=== PATIENT | female | born 1995 | race Caucasian/White ===

== ENCOUNTER → 2017-06-27 01:25 | Emergency (ER) | payer BC ==
[2017-06-27 01:48] VITALS: BP 115/77
--- NOTE | 2017-06-27 02:16 | ED ---
Throat Pain/Nasal Congestion - HPI Summary HPI Summary: 21F presents with right eye pain that resolved. She states she got some dust in her eye when she was trying to move a ceiling panel. She states the area teared and she had pain and rubbed it and then her pain resolved. The school sent her in for further evaluation. she denies any drainage, pain, blurry vision or change in vision. She wears glasses but does not wear contacts. She denies any foreign body sensation. - History of Current Complaint Chief Complaint: EDEyeProblem Time Seen by Provider: 06/27/17 01:45 - Allergies/Home Medications Allergies/Adverse Reactions: Allergies Allergy/AdvReac Type Severity Reaction Status Date / Time Amoxicillin Allergy Hives Verified 02/15/16 10:21 PMH/Surg Hx/FS Hx/Imm Hx Endocrine/Hematology History: Denies: Hx Diabetes Cardiovascular History: Denies: Hx Congestive Heart Failure, Hx Hypertension, Hx Pacemaker/ICD, Other Cardiovascular Problems/Disorders Respiratory History: Reports: Hx Asthma - WITH EXERCISE SINCE 2011, Other Respiratory Problems/Disorders - [place]CHITIS [place]UMONIA [place] [id number]; PRESCRIBED RESCUE INHALER Denies: Hx Chronic Obstructive Pulmonary Disease (COPD) History: Denies: Hx Dialysis, Hx Renal Disease Musculoskeletal History: Denies: Hx Rheumatoid Arthritis, Hx Osteoporosis Sensory History: Denies: Hx Hearing Aid Psychiatric History: Denies: Hx Panic Disorder - Surgical History Surgery Procedure, Year, and Place: ARTHROSCOPIC MENISCUS REPAIR-LEFT KNEE Infectious Disease History: Denies: Traveled Outside the [place] in Last 30 Days - Family History Known Family History: Negative: Cardiac Disease, Hypertension, Diabetes - Social History Alcohol Use: None Substance Use Type: Reports: None Hx Tobacco Use: No Smoking Status (MU): Never Smoked Tobacco Have You Smoked in the Last Year: No Review of Systems Negative: Fever Positive: Other - pain in eye resolved Negative: Chest Pain Negative: Shortness Of Breath All Other Systems Reviewed And Are Negative: Yes Physical Exam Triage Information Reviewed: Yes Vital Signs On Initial Exam: Initial Vitals Temp Pulse Resp BP Pulse Ox 98.4 F 84 16 111/68 100 06/27/17 01:26 06/27/17 01:26 06/27/17 01:26 06/27/17 01:26 06/27/17 01:26 Vital Signs Reviewed: Yes Appearance: Positive: Well-Appearing Skin: Positive: Warm, Dry Head/Face: Positive: Normal Head/Face Inspection Eyes: Positive: Normal, EOMI, VÍCTOR, Conjunctiva Clear ENT: Positive: Normal ENT inspection, Pharynx normal, TMs normal Respiratory/Lung Sounds: Positive: Clear to Auscultation, Breath Sounds Present Cardiovascular: Positive: Normal, RRR Psychiatric: Positive: Normal Procedures - Eye Procedure Alcaine Drops Administered: Yes - no uptake on fluorscein exam Diagnostics - Vital Signs Vital Signs Temp Pulse Resp BP Pulse Ox 06/27/17 01:46 98.6 F 87 16 115/77 98 06/27/17 01:26 98.4 F 84 16 111/68 100 - Laboratory Lab Statement: Any lab studies that have been ordered have been reviewed, and results considered in the medical decision making process. EENT Course/Dx - Course Course Of Treatment: 21F presents with right eye pain that resolved. She states she got some dust in her eye when she was trying to move a ceiling panel. She states the area teared and she had pain and rubbed it and then her pain resolved. The school sent her in for further evaluation. she denies any drainage, pain, blurry vision or change in vision. She wears glasses but does not wear contacts. She denies any foreign body sensation. on exam no foreign body. fluorscein exam no uptake. discussed will not place on antibiotics at this point. patient understands and agrees with plan. - Differential Diagnoses Differential Diagnoses: Conjunctivitis, Corneal Abrasion, Foreign Body - Diagnoses Provider Diagnoses: Foreign body of right eye Discharge - Discharge Plan Condition: Good Disposition: HOME Referrals: No Primary Care Phys,NOPCP [Primary Care Provider] - Additional Instructions: no foreign body or abrasion seen on eye exam Use saline rinse if develop any symptoms Follow up with health center if develop any abnormal drainage Return to ED if develop any new or worsening symptoms
== END | disposition home or self-care (01) ==
LOC: ED 01:25
DX: T15.91XA Foreign body on external eye, part unspecified, right eye, initial encounter (principal); X58.XXXA Exposure to other specified factors, initial encounter; Y93.89 Activity, other specified; Y92.9 Unspecified place or not applicable; Y99.9 Unspecified external cause status
CPT/HCPCS: 99281

== ENCOUNTER → 2018-08-25 17:36 | Emergency (ER) | payer BC ==
[~2018-08-25 17:36] MED LIST: Butalb/Acetamin/Caff TAB* 1 TAB PO ONE; Metoclopramide IV* 5 MG/ML 2 ML VIAL IV ONE; NS 0.9% 1000 ML* 1,000 ML IV ONE; diPHENhydraMINE IV* 50 MG/ML 1 ml VIAL (BENADRYL) IV ONE; diPHENhydraMINE PO* 50 MG PO ONE; methylPREDNISolone 125 MG* 2 ML VIAL IV ONE
--- OUTSIDE RECORDS SUMMARY | 2018-08-25 18:26 | XMS REPORT ---
:1995 External Reference #:[id number] Author Organization [facility] Address [address] [address] Phone [phone] Care Team Providers Name Role Phone Azalea Shrestha MD Care Team Information Process Development Engineer Unavailable Payers Type Date Identification Numbers Payment Provider Subscriber Commercial Policy Number: [id number] [facility] Dixie Cormier PayID: [id number] [place] [id number] Medigap Part B Effective: 2018 Policy Number: BCBS Ppo Dixie Cormier [id number] PayID: [id number] [facility] [address] [place] [address] Problems Date Description Provider Status Onset: 08/01/2015 Exercise-induced asthma Cindi Piña MD Active Social History Type Date Description Comments ETOH Use Denies alcohol use Smoking Patient has never smoked Recreational Drug Use Denies Drug Use Allergies, Adverse Reactions, Alerts Date Description Reaction Status Severity Comments 08/01/2015 Amoxicillin active hive 08/01/2015 NKDA inactive Medications Medication Date Status Form Strength Qnty SIG Indications Ordering Provider Butalbital/Acet 08/04/ Active Capsules 50-300-40m 30caps 1 by mouth G43.011 [place], aminophen/Caffe 2018 g up to twice Azalea ine a day as MD Linda needed [place] Amitriptyline 08/04/ Active Tablets 25mg 30tabs take 1 G43.011 [place], HCL 2018 tablet by Azalea mouth at MD Linda bedtime Ventolin HFA 08/01/ Active Aerosol 108(90Base 1units 2 Wang 2014 ) mcg/Act inhalation Cindi spaced 1 MD Erlinda min apart 20 min prior to exersize - - pls deliver to tiff's fatmata Bactrim DS 02/12/ Hx Tablets 800-160mg 14tabs 1 tab by L03.116 [place], 2017 - mouth twice Azalea day x 7 MD Linda 2017 Vital Signs Date Vital Result Comment 08/04/2018 Weight 129.00 lb Heart Rate 89 /min BP Systolic 117 mmHg BP Diastolic 74 mmHg Height 64 inches 5'4" BMI (Body Mass Index) 22.1 kg/m2 02/14/2017 Weight 129.38 lb Heart Rate 93 /min BP Systolic 115 mmHg BP Diastolic 68 mmHg Height 64 inches 5'4" BMI (Body Mass Index) 22.2 kg/m2 02/12/2017 Body Temperature 98.6 F Weight 126.38 lb Heart Rate 86 /min BP Systolic 106 mmHg BP Diastolic 80 mmHg 08/01/2015 Weight 123.19 lb Weight Percentile 44th Heart Rate 108 /min BP Systolic 133 mmHg BP Diastolic 75 mmHg Results Description No Information Procedures Description No Information Encounters Type Date Location Provider CPT E/M Dx Office Visit 02/14/2017 9:20a Tanya Arreguin [place] [id number] L03.116 Office Visit 02/12/2017 11:00a Tanya Arreguin [place] [id number] L03.116 Office Visit 08/01/2015 1:20p Cindi Walker [place] [id number] B85.0 Plan of Care Future Appointment(s):08/25/2018 10:40 am - Can Hernandez PA at [id number] 10:00 am - [place] [facility] at [id number]/04/2018 - Can Hernandez, PAG43.011 Migraine without aura, intractable, with status migrainosusNew Medication:Butalbital/Acetaminophen/Caffeine 50-300-40 mgAmitriptyline HCL 25 mgComments:??rebound [place]. Stop motrin and tylenol. Will try elivil qhs and fioricet up to bid prn to break thecycle. ??MRI. ??refer to neuro.Follow up:f/ u in 2-3weeks
--- NOTE | 2018-08-25 19:20 | ED ---
Headache - HPI Summary HPI Summary: A 23 y/o female presents to the ED c/o [place] since 8 weeks ago, however today she claims that she felt like she almost lost consciousness. She describes the pain as constant. She also c/o dizziness, forgetfulness, numbness in her fingers and she feels like her legs are giving out. She denies weakness and fever. She has been given Tramadol but claims that it is not helping. She denies alcohol or drug use. - History Of Current Complaint Chief Complaint: EDHeadache Stated Complaint: HEADACHE Time Seen by Provider: 08/25/18 19:01 Hx Obtained From: Patient Hx Last Menstrual Period: 08/14/16 Onset/Duration: Gradual Onset, Started weeks ago, Still Present Initially Headache Was: Moderate Currently Pain Is: Moderate Timing: Constant Associated Signs And Symptoms: Dizziness, Visual Changes - Allergies/Home Medications Allergies/Adverse Reactions: Allergies Allergy/AdvReac Type Severity Reaction Status Date / Time amoxicillin Allergy Hives Verified 08/25/18 18:09 PMH/Surg Hx/FS Hx/Imm Hx Endocrine/Hematology History: Denies: Hx Diabetes Cardiovascular History: Denies: Hx Congestive Heart Failure, Hx Hypertension, Hx Pacemaker/ICD, Other Cardiovascular Problems/Disorders Respiratory History: Reports: Hx Asthma - WITH EXERCISE SINCE 2011, Other Respiratory Problems/Disorders - [place]IA [place] [id number]; PRESCRIBED RESCUE INHALER Denies: Hx Chronic Obstructive Pulmonary Disease (COPD) History: Denies: Hx Dialysis, Hx Renal Disease Musculoskeletal History: Denies: Hx Rheumatoid Arthritis, Hx Osteoporosis Sensory History: Denies: Hx Hearing Aid Psychiatric History: Denies: Hx Panic Disorder - Surgical History Surgery Procedure, Year, and Place: ARTHROSCOPIC MENISCUS REPAIR-LEFT KNEE - Immunization History Immunizations Up to Date: Yes Infectious Disease History: No Infectious Disease History: Denies: Traveled Outside the [place] in Last 30 Days - Family History Known Family History: Negative: Cardiac Disease, Hypertension, Diabetes - Social History Alcohol Use: None Substance Use Type: Reports: None Hx Tobacco Use: No Smoking Status (MU): Never Smoked Tobacco Have You Smoked in the Last Year: No Review of Systems Negative: Fever Positive: Blurred Vision Neurological: Other - Positive: forgetful, dizzy Positive: Headache, Numbness. Negative: Weakness All Other Systems Reviewed And Are Negative: Yes Physical Exam - Summary Physical Exam Summary: Appearance: Well appearing, no pain distress Skin: warm, dry, reflects adequate perfusion Head/face: normal Eyes: EOMI, VÍCTOR ENT: normal Neck: supple, non-tender Respiratory: CTA, breath sounds present Cardiovascular: RRR, pulses symmetrical Abdomen: non-tender, soft Bowel: present Musculoskeletal: normal, strength/ROM intact Neuro: normal, sensory motor intact, A&Ox3 GCS: 15 Triage Information Reviewed: Yes Vital Signs On Initial Exam: Initial Vitals Temp Pulse Resp BP Pulse Ox 98.9 F 82 20 131/77 96 08/25/18 17:51 08/25/18 17:51 08/25/18 17:51 08/25/18 17:51 08/25/18 17:51 Vital Signs Reviewed: Yes Diagnostics - Vital Signs Vital Signs Temp Pulse Resp BP Pulse Ox 08/25/18 18:33 71 119/78 98 08/25/18 18:32 90 100 08/25/18 17:51 98.9 F 82 20 131/77 96 - Laboratory Lab Statement: Any lab studies that have been ordered have been reviewed, and results considered in the medical decision making process. - CT Brain CT Interpretation Completed By: Radiologist - No acute intracranial pathology. The ED physician has reviewed this report. Re-Evaluation - Re-Evaluation First Eval Re-Evaluation Time: 19:28 Change: Unchanged Comment: Spoke with patient about what the neuroligist recommends Second Eval Re-Evaluation Time: 21:20 Change: Improved Comment: Patient states that she is feeling better and is ready for discharge Headache Course/Dx - Course Course Of Treatment: A 23 y/o female presents to the ED c/o [place] since 8 weeks ago , however today she claims that she felt like almost lost consciousness. Her PE was normal. Her brain CT came back negative showing no acute intracranial pathology. Upon re-eval the patient claims to be feeling better. Dx: headache , migraine. She will be discharged and is agreeable to this plan. - Diagnoses Differential Diagnosis/HQI/PQRI: Migraine, Sinus Headache, Tension Headache Provider Diagnoses: Headache, Migraine - Physician Notifications Discussed Care Of Patient With: Shanta Mark Time Discussed With Above Provider: 19:18 - recommends steroids and magnesium for the patient. Discharge - Sign-Out/Discharge Documenting (check all that apply): Patient Departure - DC - Discharge Plan Condition: Stable Disposition: HOME Prescriptions: Magnesium Oxide TAB* [MagOx 400 TAB*] 400 mg PO DAILY #30 tab methylPREDNISolone [Medrol] 4 mg PO ONCE #1 tab.ds.pk Patient Education Materials: Migraine Headache (ED), General Headache (ED) Referrals: Sumi Guerra MD [Primary Care Provider] - 3 Days Shanta Mark MD [Medical Doctor] - (3 days) Additional Instructions: Follow up with Dr. Mark, neurologist, in 3 days. Return to the ED if you experience any new or worsening symptoms. - Billing Disposition and Condition Condition: STABLE Disposition: Home - Attestation Statements Document Initiated by Scribe: Yes Documenting Scribe: Saurav Kirkpatrick Provider For Whom Scribe is Documenting (Include Credential): Cristian Akbar MD Scribe Attestation: Saurav Fields, scribed for Cristian Akbar MD on 08/25/18 at 2202. Scribe Documentation Reviewed: Yes Provider Attestation: The documentation as recorded by the Saurav rose accurately reflects the service I personally performed and the decisions made by Cristian cabrera MD
--- NOTE | 2018-08-25 20:02 | RAD ---
EXAM: CT Head Without Intravenous Contrast CLINICAL HISTORY: 23 years old, female; Pain; Headache TECHNIQUE: Axial computed tomography images of the head/brain without intravenous contrast. All CT scans at this facility use at least one of these dose optimization techniques: automated exposure control; mA and/or kV adjustment per patient size (includes targeted exams where dose is matched to clinical indication); or iterative reconstruction. COMPARISON: [facility] BRAIN W/WO 02/21/2016 3:19 PM FINDINGS: Brain: No intracranial hemorrhage or extra-axial fluid collection. No evidence of mass effect or midline shift. Zapata-white matter differentiation is normal. Ventricles: Ventricles and sulci are normal. Bones/joints: No acute osseus lesions or fractures. Soft tissues: Unremarkable. Sinuses: Unremarkable as visualized. No acute sinusitis. Mastoid air cells: Mastoid air cells are clear. IMPRESSION: No acute intracranial pathology. To contact [facility] with a general question: [facility] - [phone] For direct physician to physician contact: Physician Hotline - [phone] [facility] ([facility] Facility ID #[id number])
[2018-08-25 21:57] VITALS: BP 129/74
== END | disposition home or self-care (01) ==
LOC: ED 17:36
DX: G43.109 Migraine with aura, not intractable, without status migrainosus (principal)
CPT/HCPCS: 70450; 96361; 96374; 96375; 99283; A9270-GY; J2765; J2930